=== PATIENT | female | born 1955 | race Caucasian/White ===

== ENCOUNTER → 2025-02-18 | Outpatient (CLI) | payer MEDICARE, OTHER ==
[~2025-02-18] MED LIST: ISOVUE-370 76% 100 ML VIAL As Ordered ONE
== END ==
LOC: M RAD 12:34
PROVIDERS: ATTEND Internal Medicine Gastroenterology
DX: K76.9 Liver disease, unspecified (principal)
CPT/HCPCS: 74160; 82565; Q9967